=== PATIENT | female | born 1990 | race Caucasian/White ===

== ENCOUNTER 2020-06-09 16:57 | Observation (INO) | payer OTHER, SELFPAY ==
[2020-06-09 17:16] VITALS: BP 108/58; PULSE 76
[2020-06-09 17:24] VITALS: BMI 28.0
--- NOTE | 2020-06-09 17:24 | OBADM ---
This patient, Minnie Ferguson, admitted to the OB room OB Post 116 for observation. Patient/family oriented to hospital policies and general routines including ID bracelet, bed and alarms, visiting hours, pain management, procedures, bathroom and other care routines, personal items, smoking policy, room service/diet, and visiting hours. Patient/Family are encouraged to report perceived risks to care and to ask questions if they do not understand what they are told or what they should do.
[2020-06-09 17:31] VITALS: BP 101/60; PULSE 77
[2020-06-09 17:46] VITALS: BP 101/56; PULSE 74
--- NOTE | 2020-07-01 08:25 | PM.OBTRLD ---
OB - Triage/Final Diagnosis Final Diagnosis (1) Back pain: Code(s): M54.9 - Dorsalgia, unspecified Status: Acute
== END 2020-06-09 18:15 | disposition home or self-care (01) ==
PROVIDERS: Admitting Provider Obstetrics & Gynecology; Visit Provider Obstetrics & Gynecology
DX: O99.89 Other specified diseases and conditions complicating pregnancy, childbirth and the puerperium (principal); M54.9 Dorsalgia, unspecified; Z3A.00 Weeks of gestation of pregnancy not specified
CPT/HCPCS: G0378; G0379

== ENCOUNTER 2020-06-25 15:19 | Observation (INO) | payer OTHER, SELFPAY ==
--- NOTE | 2020-06-25 15:19 | OBADM ---
This patient, Minnie Ferguson, admitted to the OB room Labor/Delivery/Recovery 105 for observation. Patient/family oriented to hospital policies and general routines including ID bracelet, bed and alarms, visiting hours, pain management, procedures, bathroom and other care routines, personal items, smoking policy, room service/diet, and visiting hours. Patient/Family are encouraged to report perceived risks to care and to ask questions if they do not understand what they are told or what they should do.
[2020-06-25 15:30] VITALS: RESP 17; BMI 28.3
[2020-06-25 16:43] VITALS: RESP 18
[2020-06-25 16:45] VITALS: BP 108/64; PULSE 60
--- NOTE | 2020-06-25 17:03 | PC.NURSE ---
Discharge instructions reviewed with patient, patient states understanding of discharge instructions. Patient denies questions and is agreeable to discharge. Patient left OB unit ambulating at 1703.
--- NOTE | 2020-07-18 08:08 | PM.OBDSVD ---
DS: Admitting Diagnosis Admitting Diagnosis Admitting Diagnosis: pelvic pain/contractions DS: Discharge Diagnosis Discharge Diagnosis (1) Vaginal delivery: Code(s): O80 - Encounter for full-term uncomplicated delivery Status: Acute OB - DS: Summary OB Procedures : None OB Procedures Intrapartum: Spontaneous Vag Delivery OB Procedures: : None Peripartum Data Infant Delivery Method: Natural Vaginal Laceration description: None complications: none Status at Discharge Functional status at discharge: independent ambulation Overall status at discharge: patient is back to baseline Time Spent with Patient Time attestation: Total time spent providing and/or coordinating discharge services: Discharge Plan Discharge Attending physician on discharge: Kaycee Galloway Consulting providers: Kaycee Galloway Discharging Clinician: Kaycee Galloway Patient Disposition: Home, Self-Care Activity: as tolerated Diet: as tolerated Discharge Instructions: OB ANTEPARTUM DISCHARGE INSTRUCTIONS This information is given to help you properly care for yourself at home after your discharge from the hospital. Follow these instructions until your doctor tells you otherwise. DIET: Eat Three Well Balanced Meals per Day Drink at Least Eight 8-Ounce Glasses of Caffeine-Free Beverages Daily Additional Diet Instructions: ACTIVITY: As Tolerated Increase Periods of Rest Side Lying Position is Preferable Additional Activity Instructions: RETURN TO LABOR AND DELIVERY IF YOU HAVE: Any Change In Baby's Normal Movement Pattern Any Leakage of Fluid Contractions 5-7 Minutes Apart with Increasing Intensity More than 6 Contractions in an Hour Vaginal Bleeding Additional Reasons to Return to Labor and Delivery: Contractions may feel like abdominal pain, tightening, cramping, pressure, back ache, or thigh ache. 24 Hour Urine Collection: Continue 24 hour urine collection until at . When collection is completed, return specimen to the [facility]. See handout for 24 hour urine collection. OTHER INSTRUCTIONS: FOLLOW-UP CARE: Keep Next Scheduled Appointment To see Olivia Galloway CNM in/on As Scheduled Valuables released to patient or family? N/A Medications from home returned to patient? N/A I Have Received Information Regarding Effective Home Pain Management I Acknowledge Receipt of and Understand the Above Instructions IF YOU HAVE ANY QUESTIONS REGARDING THESE INSTRUCTIONS, PLEASE CALL [phone]. IF PROBLEMS ARISE, CALL YOUR PROVIDER. IF EMERGENCY CARE IS NEEDED, [facility] EMERGENCY ROOM IS AVAILABLE 24 HOURS A DAY. Stand Alone Forms: General Discharge Information Follow-up/Referrals: Kaycee Galloway CNM [Certified Nurse Tool And Die Manager] - Keep Reg. Scheduled Appt. Discharge Medications: Continued PNV cmb#95-ferrous fumarate-FA [] 28 mg iron- 800 mcg Tablet 1 tablet PO DAILY RF: 0 Date of admission: 06/25/20 15:19 Primary Care Provider: PHYSICIAN,CUSTOMER DATA TECHNICIAN Admitting Provider: Stephanie Esqueda Attending physician on admission: Stephanie Esqueda
--- NOTE | 2020-07-22 07:40 | PM.OBTRLD ---
OB - Triage/Final Diagnosis Final Diagnosis (1) False labor: Code(s): O47.9 - False labor, unspecified Status: Acute
== END 2020-06-25 17:03 | disposition home or self-care (01) ==
PROVIDERS: Admitting Provider Obstetrics & Gynecology; Visit Provider Obstetrics & Gynecology
DX: O47.9 False labor, unspecified (principal); Z3A.00 Weeks of gestation of pregnancy not specified
CPT/HCPCS: G0378; G0379

== ENCOUNTER 2020-06-28 03:40 | Observation (INO) | payer OTHER, SELFPAY ==
--- NOTE | 2020-07-22 08:07 | PM.OBTRLD ---
OB - Triage/Final Diagnosis Final Diagnosis (1) False labor: Code(s): O47.9 - False labor, unspecified Status: Acute
== END 2020-06-28 06:15 | disposition home or self-care (01) ==
PROVIDERS: Admitting Provider Obstetrics & Gynecology; Visit Provider Obstetrics & Gynecology
DX: O47.9 False labor, unspecified (principal); Z3A.00 Weeks of gestation of pregnancy not specified
CPT/HCPCS: G0378; G0379

== ENCOUNTER 2020-07-04 14:17 | Inpatient (IN) | payer OTHER, SELFPAY ==
[2020-07-04] VITALS (83 sets, daily range): BP systolic 88–132; BP diastolic 43–106; PULSE 45–205; RESP 16; TEMP 36.2–37.2; O2SAT 83–100; BMI 27.8
[2020-07-04] MEDS: LACTATED RINGERS 1,000 ML 125 ML IV CONT ×2 (15:09→17:54)
[2020-07-04] MEDS: OXYTOCIN 30 UNITS/NS 500 ML 30 UNITS/500 ML BAG IV CONT (15:10)
[2020-07-04 15:19] LABS: Basophils Percent Auto 0.4 % (0.2-1.2); Eosinophils Absolute Auto 0.1 K/mm3 (0-0.3); Eosinophils Percent Auto 0.9 % (0-4.4); Hemoglobin 11.4 g/dL (12.0-15.0); Immature Granulocyte Absolute 0.06 K/mm3 (0.00-0.031); Immature Granulocyte Percent A 0.8 % (0-0.5); Lymphocytes Absolute Auto 2.07 K/mm3 (0.9-3.2); Lymphocytes Percent Auto 26.1 % (18.3-44.2); Mean Corpuscular HGB Conc 34.5 g/dl (32-36); Mean Corpuscular Hemoglobin 32.6 pg (26-34); Mean Corpuscular Volume 94.3 fl (80-100); Mean Platelet Volume 10.7 fl (7.4-10.4); Monocytes Absolute Auto 0.6 K/mm3 (0.1-0.6); Monocytes Percent Auto 7.6 % (2.6-8.5); Neutrophils Absolute Auto 5.1 K/mm3 (1.3-6.7); Neutrophils Percent Auto 64.2 % (45.5-73.1); Platelet Count Result 157 k/mm3 (150-375); Red Cell Distribution Width 14.5 % (11.5-14.5); White Blood Count 7.9 K/mm3 (4.5-10.0)
--- NOTE | 2020-07-04 15:28 | LDADM ---
This patient, Minnie Ferguson, was admitted to Labor/Delivery/Recovery 107 on 07/04/20 at 14:17. Plans for labor, pain management and were discussed with patient. Patient/family oriented to hospital policies and general routines including ID bracelet, bed and alarms, visiting hours, pain management, procedures, bathroom and other care routines, personal items, smoking policy, room service/diet and guest tray routines, security routines, and visiting hours. Patient/Family are encouraged to report perceived risks to care and to ask questions if they do not understand what they are told or what they should do. See OBIX for further documentation.
--- NOTE | 2020-07-04 17:51 | WPDANESEPPF ---
Anes - Initial Pre Proc Eval Date/Time: 07/04/20 17:51 Surgeon: Stephanie Esqueda MD Pre Op Diagnosis: IOL Patient Data Age: 29 Gender: F Height: 5 ft 1.5 in Weight: 68 kg Last Vital Signs Temp 37.2 C 07/04/20 16:41 Pulse 82 07/04/20 17:50 BP 115/70 07/04/20 17:50 Pulse Ox 100 07/04/20 17:47 Allergies Allergy/AdvReac Type Severity Reaction Status Date / Time No Known Drug Allergies Allergy Unknown Unknown Verified 06/12/20 12:37 Home Medications Medication Instructions Recorded Confirmed Type PNV cmb#95-ferrous fumarate-FA 1 tablet PO DAILY 06/12/20 06/12/20 History [] Laboratory Tests 07/04/20 07/04/20 07/04/20 15:06 15:06 15:06 WBC 7.9 K/mm3 K/mm3 (4.5-10.0) RBC 3.50 M/mm3 L M/mm3 (4.2-5.4) Hgb 11.4 g/dL L g/dL (12.0-15.0) Hct 33.0 % L % (37.0-47.0) MCV 94.3 fl fl (80-100) MCH 32.6 pg pg (26-34) MCHC 34.5 g/dl g/dl (32-36) RDW 14.5 % % (11.5-14.5) Plt Count 157 k/mm3 k/mm3 (150-375) MPV 10.7 fl H fl (7.4-10.4) Immature Gran % (Auto) 0.8 % H % (0-0.5) Neut % (Auto) 64.2 % % (45.5-73.1) Lymph % (Auto) 26.1 % % (18.3-44.2) [place] % (Auto) 7.6 % % (2.6-8.5) Eos % (Auto) 0.9 % % (0-4.4) Baso % (Auto) 0.4 % % (0.2-1.2) Lymph # (Auto) 2.07 K/mm3 K/mm3 (0.9-3.2) [place] # (Auto) 0.6 K/mm3 K/mm3 (0.1-0.6) Eos # (Auto) 0.1 K/mm3 K/mm3 (0-0.3) Baso # (Auto) 0.0 K/mm3 K/mm3 (0.0-0.1) Abs Immat Gran (auto) 0.06 K/mm3 H K/mm3 (0.00-0.031) Absolute Neuts (auto) 5.1 K/mm3 K/mm3 (1.3-6.7) Absolute Nucleated RBC 0.0 K/mm3 K/mm3 (0.0-0.012) Nucleated RBC % 0.0 % % (0.0-0.2) RPR Pending Blood Type A Positive Antibody Screen Negative Patient hx anesthesia problems: none Family hx anesthesia problems: none PMFSH Family History Family History Other Unknown family medical history Social History Social History Smoking status: Never smoker Substance use: never Spiritual care concerns: No Anes - Eval Final PreProcedure Day of Procedure 07/04/20 17:51 Patient weight: overweight Heart: regular rate and rhythm Lungs: clear to auscultation Neurological: alert and oriented ASA classification: II Emergent: no Anesthetic plan: proceed Anesthesia type and monitoring: regional epidural and standard monitoring Informed Consent: The patient's anesthetic plan and its attendant risks and benefits were discussed with the patient/family/POA. Questions were solicited and answers provided to the satisfaction of the patient/family/POA.
[2020-07-04] MEDS: ONDANSETRON INJ 4 MG/2 ML VIAL IV PUSH (18:36)
--- NOTE | 2020-07-04 18:49 | WPDOBADMIT ---
Obstetrics - Admit Note Admission Note: 29y/o @ 39 weeks here for elective induction of labor. AROM performed Cervix record reviewed. No pertinent additions to the history and/or any subsequent changes in the physical findings that are not consistent with the expected course of the were found. Additions to the history and/or subsequent changes in the physical findings follow. None.
--- NOTE | 2020-07-04 20:56 | P.PCNOB_ITS ---
OB - Delivery Note Procedure Delivery date: 07/04/20 Intrapartal events: None Induction method: per pitocin protocol Delivery monitor: external FHT and external uterine Route of delivery: Episiotomy description: None Laceration description: None Estimated blood loss (mL): 160 Anesthesia type: None [place] Baby Date of : 07/04/20 Time of : 20:42 Weeks of gestation at delivery: 39 gender: Female Weight (pounds): 7 Weight (ounces): 2 presentation: vertex position: Right Occiput Anterior Placenta delivery description: Spontaneous cord vessel description: 3 Vessels
[2020-07-04] MEDS: OXYTOCIN 30 UNITS/NS 500 ML 30 UNITS/500 ML BAG 125 UNITS IV CONT (21:21)
[2020-07-04] MEDS: WITCH HAZEL 40 PADS 1 PAD TOPICAL (23:03)
[2020-07-04] MEDS: BENZOCAINE 20% AER SPR (*SP) 56 GM CAN 1 SPRAY TOPICAL (23:03)
--- NOTE | 2020-07-04 23:27 | PC.NURSE ---
This patient, Minnie Ferguson, was received from Labor and Delivery on 07/04/20 at 2320. Personal belongings list checked and signed. Patient/family oriented to unit policies and routines
[2020-07-04] MEDS: IBUPROFEN 600 MG TABLET PO (23:49)
[2020-07-05 05:25] LABS: Hematocrit 29.8 % (37.0-47.0); Hemoglobin 10.2 g/dL (12.0-15.0)
[2020-07-05 07:15] VITALS: PULSE 86; RESP 16; O2SAT 100
[2020-07-05] MEDS: IBUPROFEN 600 MG TABLET PO ×2 (07:25→16:29)
--- NOTE | 2020-07-05 07:42 | P.PNOB_ITS ---
OB - PN: Subj Subjective Date/time seen: 07/05/20 07:42 Patient comments: no complaints, pain well controlled and other (Lochia similar to menses) [place] baby status: doing well OB - PN: Obj Data Labs CBC & Chem 7: 07/05/20 04:10 Labs: Laboratory Results - last 24 hr 07/04/20 07/04/20 07/05/20 15:06 15:06 04:10 WBC 7.9 RBC 3.50 L Hgb 11.4 L 10.2 L Hct 33.0 L 29.8 L MCV 94.3 MCH 32.6 MCHC 34.5 RDW 14.5 Plt Count 157 MPV 10.7 H Immature Gran % (Auto) 0.8 H Neut % (Auto) 64.2 Lymph % (Auto) 26.1 [place] % (Auto) 7.6 Eos % (Auto) 0.9 Baso % (Auto) 0.4 Lymph # (Auto) 2.07 [place] # (Auto) 0.6 Eos # (Auto) 0.1 Baso # (Auto) 0.0 Abs Immat Gran (auto) 0.06 H Absolute Neuts (auto) 5.1 Absolute Nucleated RBC 0.0 Nucleated RBC % 0.0 Blood Type A Positive Antibody Screen Negative OB - PN A/P Plan day: 1 (s/p vaginal delivery, doing well) Plan: routine care Time Spent With Patient Time: Total time spent is greater than 50% in coordination of care (as documente d) at patient's floor/unit and/or counseling patient: Exam Const: General: no acute distress GI: Inspection: other (Fundus firm and nontender at umbilicus) GI Palp: Yes Soft to palpation and No Tenderness to palpation present (GI) Extrem: General: no edema
[2020-07-05 07:45] VITALS: BP 105/59; PULSE 70; RESP 16; TEMP 36.9; O2SAT 100
--- NOTE | 2020-07-05 09:22 | WPDANLDPN2 ---
Anes-Prog Note L&D Date/Time: 07/05/20 09:22 Comfortable throughout: labor and delivery Neuraxial method: epidural Epidural/Spinal procedure site: clean & non-tender Neuro status: Neuro function grossly intact. Cardiovascular status: normal Respiratory status: normal Airway patency: baseline Mental status: baseline Post-Op hydration status: normal Vital Signs: Last Vital Signs Temp 36.2 C L 07/04/20 23:35 Pulse 86 07/05/20 07:15 Resp 16 07/05/20 07:15 BP 105/73 07/04/20 23:35 Pulse Ox 100 07/05/20 07:15 Pain score (VAS): 10/20 I/O: Intake & Output 07/04/20 07/05/20 07/05/20 23:59 07:59 15:59 Intake Total 2500 Output Total 284 Balance 2500 -284 Post-procedural complaints: none Patient feedback: Patient satisfied with anesthetic care.
[2020-07-05 11:13] LABS: Rapid Plasma Reagin Non-Reactive (NonReactive)
[2020-07-05] MEDS: ACETAMINOPHEN 325 MG TABLET 650 MG PO (11:25)
--- NOTE | 2020-07-05 15:15 | PC.NURSE ---
Consulted with patient, mother reports infant has eagerly latched for the first several feedings. Mother states she has requested assist with latching each feeding. Advised mother she may attempt on her own or call for assist as she wishes. Reviewed feeding cues, frequencies, duration of feedings, feeding elimination flow sheet, and signs of adequate intake. Demonstrated stimulation techniques to wake for feeding. Assisted with to breast. Reviewed positioning/alignment in cross cradle, holding breast in U hold and guided asymmetrical latch on. Reviewed rational for each. was able to latch correctly. nursed eagerly, with steady draws and frequent swallowing noted. Reviewed signs of a correct latch, effective nursing and suck swallow ratio. was able to maintain latch without discomfort to mother. Nipple care reviewed. Suggested mother stimulate to keep awake and nursing effectively for increased intake and to assist with maintaining deep latch. Demonstrated how to adjust latch while feeding. Instructed mother to call out for RN assistance if she is unable to latch infant for feeding or she has discomfort with nursing. Instructed feeding should be initiated three hours from start of last feeding or if feeding cues are noted before. Mother voiced understanding of information shared.
[2020-07-05] MEDS: POLYSACCHARIDE IRON COMPLEX 150 MG CAPSULE PO (16:27)
[2020-07-05 19:40] VITALS: BP 110/64; PULSE 73; RESP 14; TEMP 36.3; O2SAT 100
[2020-07-06] MEDS: IBUPROFEN 600 MG TABLET PO ×2 (01:46→08:11)
[2020-07-06 07:45] VITALS: BP 111/71; PULSE 78; RESP 18; TEMP 36.8; O2SAT 100
[2020-07-06] MEDS: MEASLES,MUMPS,RUBELLA VACCINE 0.5 ML VIAL SUB-Q (08:12)
--- NOTE | 2020-07-06 10:43 | PM.OBPNVD ---
OB - PN: Subj Subjective Date/time seen: 07/06/20 10:43 Patient comments: no complaints baby status: doing well OB - PN: Obj Data Labs CBC & Chem 7: 07/05/20 04:10 Labs: Laboratory Results - last 24 hr 07/04/20 15:06 RPR Non-reactive OB - PN A/P Plan day: 2 Plan: routine care and discharge home Comments: RTC 4 weeks Time Spent With Patient Time: Total time spent is greater than 50% in coordination of care (as documented) at patient's floor/unit and/or counseling patient: Review of Systems Review of Systems: All systems reviewed & are unremarkable except as noted in HPI and below Exam Narrative: Exam Narrative: Fundus firm and flow controlled. Const: General: comfortable Resp: Effort & Inspection: normal respiratory effort Psych: Appearance: grossly normal Affect: normal affect Attitude: cooperative Judgement: Good judgement present (Psych)
--- NOTE | 2020-07-06 12:23 | PC.NURSE ---
Patient instructed on viewing the discharge video Mother & Baby Care, The First Two Weeks . Patient was given the opportunity and encouraged to ask questions. Patient verbalized understanding of information shared and has been given the mother/baby guide for home reference.
[2020-07-08 08:27] VITALS: BP 112/65; PULSE 69; RESP 16; TEMP 36.8; O2SAT 100
--- NOTE | 2020-07-22 08:13 | PM.OBDSVD ---
DS: Admitting Diagnosis Admitting Diagnosis Admitting Diagnosis: IOL DS: Discharge Diagnosis Discharge Diagnosis (1) Vaginal delivery: Code(s): O80 - Encounter for full-term uncomplicated delivery Status: Acute OB - DS: Summary OB Procedures : None OB Procedures Intrapartum: Spontaneous Vag Delivery OB Procedures: : None Peripartum Data Infant Delivery Method: Natural Vaginal Laceration description: None complications: none Status at Discharge Functional status at discharge: independent ambulation Overall status at discharge: patient is back to baseline Time Spent with Patient Time attestation: Total time spent providing and/or coordinating discharge services: Time spent: Less than 30 minutes Discharge Plan Discharge Attending physician on discharge: Kaycee Galloway Consulting providers: Kaycee Galloway ; [place] Discharging Clinician: Kaycee Galloway Patient Disposition: Home, Self-Care Activity: pelvic rest Diet: as tolerated Discharge Instructions: Education: Mom and Baby Guide Given to: Mother Follow-Up: Call your delivering provider's office for an appointment to be seen in: call for appointment Mom and baby should come to the [facility] for the follow-up appointment. Appointment Date/Time: July 08, 2020 at 8:00 am What to expect at your follow-up visit: Physical Assessment Call [phone] if you are unable to keep your appointment time. BREAST CARE: * Wear a snug supportive bra. * For engorgement discomfort: Bottle Feeding: * May apply ice packs EPISIOTOMY/PERINEAL CARE: * Until bleeding stops, use your margarita bottle after urinating * Change your pad frequently throughout the day * No tub baths until seen by your physician - You may shower ACTIVITY: * Rest as much as possible. * Do not exercise or lift anything heavier than your baby (such as laundry or other children.) * Avoid stairs or driving as much as possible. * Do not put anything into the vagina. No douching, tampons, or sexual activity until seen by physician. NOTIFY PHYSICIAN IF YOU HAVE ANY QUESTIONS OR IF ANY OF THE FOLLOWING SYMPTOMS OCCUR: * If your perineum becomes red, swollen, or more painful than what you have experienced in the hospital. * If your vaginal bleeding becomes foul smelling. * If your vaginal bleeding becomes more heavy than a period or if your bleeding changes from pink to bright red. However, you may pass an occasional walnut-sized clot once or twice for the first week . * If you experience a sharp, shooting pain in you calves. * If you discover a hard, reddened area on your breast or if you experience flu-like symptoms. DIET: * Eat regular, well-balanced meals. * Drink plenty of fluids daily. If , drink to thirst. Stand Alone Forms: General Discharge Information Follow-up/Referrals: Kaycee Galloway CNM [Certified Nurse Sales Representative Printing Paper] - Discharge Medications: Continued PNV cmb#95-ferrous fumarate-FA [] 28 mg iron- 800 mcg Tablet 1 tablet PO DAILY RF: 0 Date of admission: 07/04/20 14:17 Primary Care Provider: PHYSICIAN,WANT AD RECEIVER Admitting Provider: Stephanie Esqueda Attending physician on admission: Stephanie Esqueda
== END 2020-07-06 13:23 | disposition home or self-care (01) | DRG 807 ==
LOC: ANHLDR 14:20 → ANHOB2 23:30
PROVIDERS: Advanced Practice Midwife; Admitting Provider Obstetrics & Gynecology; Visit Provider Obstetrics & Gynecology
DX: O77.0 Labor and delivery complicated by meconium in amniotic fluid (principal); Z37.0 Single live birth; Z3A.39 39 weeks gestation of pregnancy
CPT/HCPCS: 36415; 85014; 85018; 85025; 86592; 86850; 86900; 86901; 90710; A9270; J2405; J2590; J2795; J7120

== ENCOUNTER → 2021-06-21 02:11 | Outpatient (CLI) | payer OTHER, SELFPAY ==
[2021-06-21 19:28] LABS: SARS-CoV-2 RNA PCR Negative
== END ==
PROVIDERS: PCP Nurse Practitioner Family; Visit Provider Nurse Practitioner Family
DX: R05 Cough (principal); Z20.822 Contact with and (suspected) exposure to COVID-19
CPT/HCPCS: C9803; U0003; U0005

== ENCOUNTER 2021-12-25 07:48 | Emergency (ER) | payer OTHER, SELFPAY ==
[2021-12-25] VITALS (11 sets, daily range): BP systolic 92–113; BP diastolic 62–92; PULSE 56–79; RESP 15–25; TEMP 36.3; O2SAT 91–100
--- NOTE | ~2021-12-25 | XR_ITS ---
EXAMINATION: XR chest 2V 12/25/2021 08:02 INDICATION: Chest pain PROCEDURE: 2 view chest COMPARISON: 06/19/2018 FINDINGS: The lungs are clear. The cardiomediastinal silhouette is within normal limits. There are no pleural effusions. There is no pneumothorax suspected. IMPRESSION: 1: NO ACUTE CARDIOPULMONARY DISEASE. Reviewed, dictated and finalized at location B.
--- NOTE | 2021-12-25 07:52 | ECG_ITS ---
Measurements Intervals [place] Rate: 62 P: 5 AL: 131 QRS: 62 QRSD: 79 T: 46 QT: 387 QTc: 395 Interpretive Statements SINUS RHYTHM NO PREVIOUS ECG AVAILABLE FOR COMPARISON Electronically Signed On 12-25-2021 13:58:57 CDT by Ghada Horowitz M.D.
[2021-12-25 08:08] LABS: Basophils Percent Auto 0.5 % (0.2-1.2); Eosinophils Absolute Auto 0.2 K/mm3 (0-0.3); Eosinophils Percent Auto 2.3 % (0-4.4); Hematocrit 39.4 % (37.0-47.0); Immature Granulocyte Absolute 0.01 K/mm3 (0.00-0.031); Immature Granulocyte Percent A 0.2 % (0-0.5); Lymphocytes Absolute Auto 3.05 K/mm3 (0.9-3.2); Lymphocytes Percent Auto 47.5 % (18.3-44.2); Mean Corpuscular Hemoglobin 30.4 pg (26-34); Mean Corpuscular Volume 92.1 fl (80-100); Mean Platelet Volume 9.5 fl (7.4-10.4); Monocytes Absolute Auto 0.7 K/mm3 (0.1-0.6); Monocytes Percent Auto 10.3 % (2.6-8.5); Neutrophils Absolute Auto 2.5 K/mm3 (1.3-6.7); Neutrophils Percent Auto 39.2 % (45.5-73.1); Platelet Count Result 208 k/mm3 (150-375); Red Blood Count 4.28 M/mm3 (4.2-5.4); Red Cell Distribution Width 13.2 % (11.5-14.5); White Blood Count 6.4 K/mm3 (4.5-10.0)
[2021-12-25 08:15] LABS: INR 0.9; Prothrombin Time 11.7 Seconds (11.1-14.7)
[2021-12-25 08:16] LABS: Alanine Aminotransferase 18 U/L (4-35); Albumin Level 4.1 g/dL (3.5-5.1); Alkaline Phosphatase 42 U/L (38-126); Anion Gap 6 mmol/L (8-16); Aspartate Amino Transferase 28 U/L (14-36); Bilirubin,Total 0.4 mg/dL (0.2-1.3); Blood Urea Nitrogen 16 mg/dL (7-17); Calcium 8.6 mg/dL (8.4-10.2); Carbon Dioxide 24 mmol/L (22-30); Chloride 109 mmol/L (98-107); Estimated CRCL calculation 93 ml/min; Estimated Glomerular Filt Rate > 60; Glucose 84 mg/dL (65-110); Lipase 112 U/L (23-300); Partial Thromboplastin Time 24.6 SECONDS (22.3-36.8); Potassium 4.5 mmol/L (3.4-5.0); Sodium 139 mmol/L (137-145)
[2021-12-25 08:27] LABS: Troponin I < 0.012 ng/mL (0.000-0.034)
[2021-12-25 09:08] LABS: D Dimer 0.35 ug/mL (<0.48)
[2021-12-25] MEDS: KETOROLAC 30 MG/ML VIAL (*BKC) IV PUSH (09:12)
--- NOTE | 2021-12-25 09:21 | ED.CHESTPAIN ---
HPI - Chest Pain General Chief Complaint: Chest Pain Stated Complaint: Chest pain Time Seen by Provider: 12/25/21 08:47 Source: patient and RN notes reviewed Mode of arrival: ambulatory History of Present Illness HPI narrative: Patient is 31 years old white female presented to the ED with sharp stabbing pain of the upper chest and upper back bilaterally worse with certain movement and stretching. This been ongoing process since had COVID November 2021, but got worse this morning. Patient denies any fever, chills, nausea, vomiting, shortness of breath. 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 Patient is physically active almost all day long. Patient does not take medicine at home, does not smoke or drink or uses drugs. Related Data Home Medications Medication Instructions Recorded Confirmed norethindrone-e.estradiol-iron tablet 12/25/21 [[place] Fe 10/30 (28)] Allergies Allergy/AdvReac Type Severity Reaction Status Date / Time No Known Drug Allergies Allergy Unknown Unknown Verified 12/25/21 07:55 Review of Systems Review of Systems: CONSTITUTIONAL: Denies fever, chills, or sweats. EYES: Denies visual changes, redness, or discharge. ENT: Denies rhinorrhea, congestion, sore throat, or otalgia. CARDIOVASCULAR: Denies chest pain, palpitations, or edema. RESPIRATORY: Denies cough or dyspnea. GASTROINTESTINAL: Denies abdominal pain, nausea, vomiting, or diarrhea. GENITOURINARY: Denies dysuria or hematuria. SKIN: Denies rash or itching. MUSCULOSKELETAL: Muscle pain NEUROLOGIC: Denies headache, numbness, or weakness. PSYCHIATRIC: Denies anxiety or depression. PMFSH Family History Family History Other Unknown family medical history Social History Social History Smoking status: Never smoker Substance use: never Spiritual care concerns: No Exam Narrative: General appearance: Well-developed, well-nourished Skin: Normal color Head: Normocephalic, nontraumatic Eyes: Clear conjunctiva ENT: Oropharynx normal, ears normal, nose normal Neck: Supple, nontender Chest and respiratory: Airway patent, no respiratory distress, no accessory muscle use Heart: Regular rate/rhythm Abdomen: Soft, nontender, no organomegaly, quiet bowel sounds Vascular: Normal peripheral pulses, normal capillary refill. Musculoskeletal: Diffuse tenderness of the upper back and upper chest bilaterally with light touch. No bruises, no swelling, no rash Neurologic: Alert and oriented ?3, SECURITY SHIFT MANAGER is normal as tested, no gross motor deficit Course Course Emergency Course: Stable Vital Signs Vital signs: Vital Signs Temperature 36.3 C L 12/25/21 07:53 Pulse Rate 75 12/25/21 07:53 Respiratory Rate 18 12/25/21 07:53 Blood Pressure 111/89 12/25/21 07:53 Pulse Oximetry 100 12/25/21 07:53 Temperature 36.3 C L 12/25/21 07:53 Pulse Rate 61 12/25/21 09:01 Respiratory Rate 21 H 12/25/21 09:01 Blood Pressure 104/64 12/25/21 09:01 Pulse Oximetry 100 12/25/21 09:01 MDM - Chest Pain MDM Narrative Medical decision making narrative: Patient presents with upper back and upper chest pain. Differential diagnosis as below Differential Diagnosis Differential diagnosis: Likely atypical chest pain, costochondritis, chest pain and other (Musculoskeletal pain) Lab Data Result diagrams: 12/25/21 07:58 12/25/21 07:58 Labs: Lab Results 12/25/21 12/25/21 12/25/21 Range/Units 07:58 07:58 07:58 WBC 6.4 (4.5-10.0) K/mm3 RBC 4.28 (4.2-5.4) M/mm3 Hgb 13.0 (12.0-15.0) g/dL Hct 39.4 (37.0-47.0) % M
== END 2021-12-25 09:40 | disposition home or self-care (01) ==
PROVIDERS: Emergency Provider Emergency Medicine; PCP Nurse Practitioner Family
DX: R07.89 Other chest pain (principal); M54.6 Pain in thoracic spine; Z86.16 Personal history of COVID-19
CPT/HCPCS: 36415; 71046; 80053; 83690; 84484; 85025; 85380; 85610; 85730; 93005; 96374; 99284; J1885

== ENCOUNTER 2023-09-06 11:04 | Emergency (ER) | payer OTHER, SELFPAY ==
--- NOTE | ~2023-09-06 | US_ITS ---
EXAMINATION: US pelvic complete DATE: 09/06/2023 15:16 INDICATION: Evaluation for torsion. Right lower quadrant pain. Comparison:No prior studies for comparison. TECHNIQUE: Multiple transabdominal and endovaginal sonographic images of the pelvis performed. FINDINGS: The uterus measures 7.2 x 3.8 x 5.9 cm. The endometrial complex measures 7.3 mm. The right ovary measures 2.2 x 1.5 x 1.6 cm and the left ovary measures 3 x 2 x 2.3 cm. There are sm all follicles in each ovary. Normal doppler signal in both ovaries. There is no free fluid in the pelvis. There are no abnormal masses seen on either side. IMPRESSION: 1. Normal pelvic ultrasound. No evidence for torsion. Reviewed, dictated and finalized at location B. REST BUILDER
--- NOTE | ~2023-09-06 | CT_ITS ---
EXAMINATION: CT abdomen pelvis w con DATE: 09/06/2023 14:28 INDICATION: Right lower quadrant abdominal pain. TECHNIQUE: Computed tomography (CT) of the abdomen and pelvis was performed with 100 mL Omnipaque 350 intravenous contrast. Automated exposure control and iterative reconstruction technique were employe d. The dose-length product was 285.30 mGy-cm. COMPARISON: CT abdomen and pelvis 06/20/2018 FINDINGS: The visualized portions of the lung bases are clear without pneumonia or pleural effusion. The heart size is normal. No pericardial effusion. The liver, gallbladder, spleen, pancreas, adrenal glands, and kidneys are normal. There are no dilated loops of bowel. The appendix is normal. There is physiologic fluid in the pelvis. There are no pathologically enlarged lymph nodes. There is mild lum bar spondylosis. IMPRESSION: 1. No etiology for the patient's symptoms. Reviewed, dictated and finalized at location A. TY CLERK
[2023-09-06 11:28] VITALS: BP 110/60; PULSE 75; RESP 14; TEMP 36.7; O2SAT 100
[2023-09-06 11:40] LABS: Basophils Percent Auto 0.4 % (0.2-1.2); Eosinophils Absolute Auto 0.1 K/mm3 (0-0.3); Eosinophils Percent Auto 1.3 % (0-4.4); Hematocrit 42.1 % (37.0-47.0); Hemoglobin 13.5 g/dL (12.0-15.0); Immature Granulocyte Absolute 0.04 K/mm3 (0.00-0.031); Immature Granulocyte Percent A 0.4 % (0-0.5); Lymphocytes Absolute Auto 2.74 K/mm3 (0.9-3.2); Lymphocytes Percent Auto 25.3 % (18.3-44.2); Mean Corpuscular HGB Conc 32.1 g/dl (32-36); Mean Corpuscular Hemoglobin 29.8 pg (26-34); Mean Corpuscular Volume 92.9 fl (80-100); Mean Platelet Volume 9.6 fl (7.4-10.4); Monocytes Absolute Auto 0.6 K/mm3 (0.1-0.6); Monocytes Percent Auto 5.2 % (2.6-8.5); Neutrophils Absolute Auto 7.3 K/mm3 (1.3-6.7); Neutrophils Percent Auto 67.4 % (45.5-73.1); Platelet Count Result 229 k/mm3 (150-375); Red Blood Count 4.53 M/mm3 (4.2-5.4); Red Cell Distribution Width 12.9 % (11.5-14.5); White Blood Count 10.8 K/mm3 (4.5-10.0)
[2023-09-06 12:21] LABS: Alanine Aminotransferase 16 U/L (6-35); Albumin Level 4.5 g/dL (3.5-5.1); Alkaline Phosphatase 53 U/L (38-126); Anion Gap 9 mmol/L (8-16); Aspartate Amino Transferase 26 U/L (14-36); Bilirubin,Total 0.3 mg/dL (0.2-1.3); Blood Urea Nitrogen 9 mg/dL (7-17); Calcium 9.2 mg/dL (8.4-10.2); Carbon Dioxide 20 mmol/L (22-30); Chloride 108 mmol/L (98-107); Estimated CRCL calculation 104 ml/min; Estimated Glomerular Filt Rate > 60; Glucose 101 mg/dL (65-110); Lipase 97 U/L (23-300); Potassium 3.9 mmol/L (3.4-5.0); Sodium 137 mmol/L (137-145)
[2023-09-06 12:23] LABS: Appearance Urine Clear (Clear); Bilirubin Urine Negative (Negative); Blood Urine Negative (Negative); Color Urine Yellow (Yellow); Glucose Urine UA Negative (Negative); Ketones Urine Negative (Negative); Leukocyte Esterase Ur Negative LEU/UL (Negative); Nitrate Urine Negative (Negative); Protein Urine Negative (Negative); Specific Grav Ur 1.008 (1.001-1.035); Urobilinogen Urine 0.2 mg/dL (<2.0); pH Urine 5.5 (5.0-9.0)
[2023-09-06 12:41] LABS: Add Urine Microscopic? NO
--- NOTE | 2023-09-06 13:58 | ED.ABDPAIN ---
HPI - Abdominal Pain General Chief Complaint: Abdominal Pain Stated Complaint: Lower right abd pain Time Seen by Provider: 09/06/23 12:33 History of Present Illness HPI narrative: 32-year-old female presents to the emergency department for evaluation of right lower quadrant pain that started yesterday. Patient denies any associated nausea vomiting or diarrhea. Patient denies any pain with urination. Patient denies any prior history of gallbladder disease, kidney stones or ovarian cyst. Related Data Home Medications Medication Instructions Recorded Confirmed norethindrone 1 mg-ethinyl tablet 12/25/21 estradiol 20 mcg (21)-iron 75 mg (7) tablet (Konrad Fe 10/30 (28)) Allergies Allergy/AdvReac Type Severity Reaction Status Date / Time No Known Drug Allergies Allergy Unknown Unknown Verified 09/06/23 11:29 Review of Systems Review of Systems: All systems reviewed & are unremarkable except as noted in HPI and below PMFSH Family History Family History Other Unknown family medical history Social History Social History Smoking status: Never smoker Substance use: never Spiritual care concerns: No Exam Narrative: APPEARANCE: Well appearing, no pain, no distress, well-nourished. HEAD: normocephalic, atraumatic. EYES: PERRLA/EOMI, conjunctivae clear. NOSE: Normal no drainage EARS:TMS clear with good light reflex. THROAT: Pharynx clear, no exudate. NECK: Supple. No adenopathy, no masses. RESPIRATORY: Airway patent, respirations nonlabored. Clear to auscultation bilaterally, no rales, rhonchi, wheezing. CARDIOVASCULAR: Regular rate and rhythm without murmurs rubs or gallops. ABDOMINAL: Some right upper quadrant but significant right lower quadrant tenderness to palpation with rebound and guarding MUSCULOSKELETAL: Moves all extremities. Strength/ROM intact, No edema, No calf tenderness. NEURO: Alert. Cranial nerves II through XII intact. Good gait. Good coordination SKIN: Warm, dry. Normal Color Course Course Emergency Course: 32-year-old female present to the ED for evaluation of right lower quadrant pain. CT scan being ordered to rule out acute appendicitis. Patient declined any medications for pain control. Patient is afebrile but does have a leukocytosis of 10.8. Normal hemoglobin. No significant abnormalities on the CMP UA shows no evidence of urinary tract infection. CT scan was ordered due to concern for possible appendicitis and this was negative. Ultrasound is ordered to rule out for ovarian torsion and this was also negative. Patient was updated on results of workup patient was comfortable with the plan for discharge and close follow-up. Patient declined any medications for pain control. Vital Signs Vital signs: Vital Signs Temperature 98.1 F 09/06/23 11:28 Pulse Rate 75 09/06/23 11:28 Respiratory Rate 14 09/06/23 11:28 Blood Pressure 110/60 09/06/23 11:28 Pulse Oximetry 100 09/06/23 11:28 Oxygen Delivery Room Air 09/06/23 11:28 Temperature 98.1 F 09/06/23 11:28 Pulse Rate 75 09/06/23 16:12 Respiratory Rate 16 09/06/23 16:12 Blood Pressure 115/65 09/06/23 16:12 Pulse Oximetry 100 09/06/23 16:12 Oxygen Delivery Room Air 09/06/23 11:28 MDM - Abdominal Pain Differential Diagnosis Differential diagnosis: Likely abdominal pain, acute appendicitis, constipation, diverticulitis and small bowel obstruction Lab Data Attestation: I reviewed the patient's lab results. 09/06/23 11:34 09/06/23 11:34 Labs: Lab Results 09/06/23 09/06/23 Range/Units 11:34 12:11 WBC 10.8 H (4.5-10.0) K/mm3 RBC 4.53 (4.2-5.4) M/mm3 Hgb 13.5 (12.0-15.0) g/dL Hct 42.1 (37.0-47.0) % MCV 92.9 (80-100) fl MCH 29.8 (26-34) pg MCHC 32.1 (32-36) g/dl RDW 12.9 (11.5-14.5) % Plt Count 229
[2023-09-06] MEDS: SODIUM CHLORIDE 0.9% IV 1,000 ML 999 ML IV CONT (14:10)
[2023-09-06 16:12] VITALS: BP 115/65; PULSE 75; RESP 16; O2SAT 100
== END 2023-09-06 16:12 | disposition home or self-care (01) ==
PROVIDERS: Emergency Provider Emergency Medicine; PCP Nurse Practitioner Family
DX: R10.31 Right lower quadrant pain (principal)
CPT/HCPCS: 36415; 74177; 76856; 80053; 81003; 81025; 83690; 85025; 96360; 99284; J7030; Q9967

== ENCOUNTER 2023-10-12 16:51 | Outpatient (CLI) | payer OTHER, SELFPAY ==
--- NOTE | ~2023-10-12 | MMUS_ITS ---
EXAMINATION: MM diagnostic carol BI w yasmeen, US breast LT limited HISTORY: Palpable lump in the upper outer quadrant of the left breast TECHNIQUE: Craniocaudal, mediolateral, and mediolateral oblique 3-D tomosynthesis images of the breas ts were performed and synthetic 2-D images were generated. CAD analysis was submitted and interpreted . High resolution limited left breast ultrasound was performed. COMPARISON: None, baseline BREAST PARENCHYMAL COMPOSITION: There are scattered areas of fibroglandular density. FINDINGS: MAMMOGRAPHIC FINDINGS: No suspicious mass, calcification, or architectural distortion are identified in either breast to sug gest malignancy. No mammographic correlate is identified for the reported palpable abnormality of the left breast. ULTRASOUND: There is no evidence of focal abnormal solid or cystic mass in the vicinity of the reported palpable abnormality of concern in the left breast. IMPRESSION: 1. No specific mammographic or sonographic correlate is identified for the reported palpable abnormal ity of concern in the left breast. Further evaluation at this time should be based on clinical assess ment. Continued follow-up physical examination is recommended. 2. Recommend routine screening mammography beginning at age 40. BI-RADS Category 1: Negative Reviewed, dictated and finalized at location A. URE FABRICATOR REPAIRER IMPRESSION: 1. No specific mammographic or sonographic correlate is identified for the repo rted palpable abnormality of concern in the left breast. Further evaluation at this time should be based on clinical assessment. Continued follow-up physical examination is recommended. 2. Recommend routine screening mammography beginning at age 40. BI-RADS Category 1: Negative
== END 2023-10-12 16:52 | disposition home or self-care (01) ==
PROVIDERS: PCP Nurse Practitioner Family; Visit Provider Nurse Practitioner
DX: N63.20 Unspecified lump in the left breast, unspecified quadrant (principal); O26.851 Spotting complicating pregnancy, first trimester; Z3A.00 Weeks of gestation of pregnancy not specified
CPT/HCPCS: 76642; 77062; 77066; G0279

== ENCOUNTER 2023-11-10 00:59 | Emergency (ER) | payer OTHER, SELFPAY ==
[2023-11-10 01:00] VITALS: BP 122/58; PULSE 78; RESP 16; TEMP 36.4; O2SAT 100
[2023-11-10 01:42] LABS: Basophils Percent Auto 0.6 % (0.2-1.2); Eosinophils Absolute Auto 0.2 K/mm3 (0-0.3); Eosinophils Percent Auto 2.3 % (0-4.4); Hematocrit 38.7 % (37.0-47.0); Hemoglobin 13.1 g/dL (12.0-15.0); Immature Granulocyte Absolute 0.02 K/mm3 (0.00-0.031); Immature Granulocyte Percent A 0.3 % (0-0.5); Lymphocytes Absolute Auto 3.36 K/mm3 (0.9-3.2); Lymphocytes Percent Auto 46.4 % (18.3-44.2); Mean Corpuscular HGB Conc 33.9 g/dl (32-36); Mean Corpuscular Hemoglobin 29.8 pg (26-34); Mean Corpuscular Volume 88.2 fl (80-100); Mean Platelet Volume 9.6 fl (7.4-10.4); Monocytes Absolute Auto 0.8 K/mm3 (0.1-0.6); Monocytes Percent Auto 10.4 % (2.6-8.5); Neutrophils Absolute Auto 2.9 K/mm3 (1.3-6.7); Platelet Count Result 201 k/mm3 (150-375); Red Blood Count 4.39 M/mm3 (4.2-5.4); Red Cell Distribution Width 12.7 % (11.5-14.5); White Blood Count 7.2 K/mm3 (4.5-10.0)
[2023-11-10 01:53] LABS: Alanine Aminotransferase 16 U/L (6-35); Alkaline Phosphatase 60 U/L (38-126); Anion Gap 10 mmol/L (8-16); Aspartate Amino Transferase 27 U/L (14-36); Bilirubin,Total 0.4 mg/dL (0.2-1.3); Blood Urea Nitrogen 10 mg/dL (7-17); Calcium 8.8 mg/dL (8.4-10.2); Carbon Dioxide 22 mmol/L (22-30); Chloride 106 mmol/L (98-107); Estimated CRCL calculation 87 ml/min; Estimated Glomerular Filt Rate > 60; Glucose 97 mg/dL (65-110); Lipase 98 U/L (23-300); Potassium 3.2 mmol/L (3.4-5.0); Sodium 138 mmol/L (137-145)
[2023-11-10 02:07] VITALS: BP 100/58; PULSE 72; RESP 15; O2SAT 100
[2023-11-10 02:34] LABS: Appearance Urine Clear (Clear); Bilirubin Urine Negative (Negative); Blood Urine Negative (Negative); Color Urine Yellow (Yellow); Glucose Urine UA Negative (Negative); Ketones Urine Negative (Negative); Leukocyte Esterase Ur Negative LEU/UL (Negative); Nitrate Urine Negative (Negative); Protein Urine Negative (Negative); Specific Grav Ur 1.006 (1.001-1.035); Urobilinogen Urine 0.2 mg/dL (<2.0); pH Urine 7.5 (5.0-9.0)
--- NOTE | 2023-11-10 03:10 | ED.GENADULT ---
HPI - General Adult General Chief complaint: Nausea/Vomiting/Diarrhea Stated complaint: dehydration? Time Seen by Provider: 11/10/23 02:05 History of Present Illness HPI narrative: This is a 33-year-old female presenting ED with chief complaint of nausea vomiting diarrhea. She has had symptoms for 3 days. She has also had body aches, subjective fevers And intermittent abdominal pains. she notes that she is having a lot of gurgling in her stomach. She has taken some Pepto-Bismol with no relief. She has not taken any other medications. 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 Patient denies chest pain difficulty breathing pain or urinary symptoms. Related Data Home Medications Medication Instructions Recorded Confirmed norethindrone 1 mg-ethinyl tablet 12/25/21 estradiol 20 mcg (21)-iron 75 mg (7) tablet (Konrad Fe 10/30 (28)) Allergies Allergy/AdvReac Type Severity Reaction Status Date / Time No Known Drug Allergies Allergy Unknown Unknown Verified 09/06/23 11:29 [facility] Family History Family History Other Unknown family medical history Social History Social History Smoking status: Never smoker Substance use: never Spiritual care concerns: No Exam Narrative: APPEARANCE: No apparent distress. Head: atraumatic. EYES: EOMI, NOSE: Atraumatic NECK: Trachea midline RESPIRATORY: No increased rate of breathing CARDIOVASCULAR: RRR, ABDOMINAL: Soft nontender no guarding rebound MUSCULOSKELETAl: No obvious deformities NEURO: Alert. Moving 4/4 extremities SKIN:: Warm, dry. Normal color PSYCHIATRIC: normal Course Vital Signs Vital signs: Vital Signs Temperature 97.6 F 11/10/23 01:00 Pulse Rate 78 11/10/23 01:00 Respiratory Rate 16 11/10/23 01:00 Blood Pressure 122/58 L 11/10/23 01:00 Pulse Oximetry 100 11/10/23 01:00 Oxygen Delivery Room Air 11/10/23 01:00 Temperature 97.6 F 11/10/23 01:00 Pulse Rate 72 11/10/23 02:07 Respiratory Rate 15 11/10/23 02:07 Blood Pressure 100/58 L 11/10/23 02:07 Pulse Oximetry 100 11/10/23 02:07 Oxygen Delivery Room Air 11/10/23 01:00 Medical Decision Making MDM Narrative Medical decision making narrative: -Course: 33-year-old female presenting with nausea vomiting diarrhea. Symptoms consistent with gastroenteritis. Vital signs stable, abdominal exam normal laboratory studies reassuring. Patient will be discharged with symptomatic treatment. Given return precautions. -DDX includes but is not limited to: Viral syndrome, gastroenteritis, appendicitis, gastritis, gallbladder disease, diverticulitis -Social determinants of health: works as a teacher selection specialist, lives with her 3 children -Independent interpretation of studies: laboratory studies within normal limits -Dx tests considered but not ordered: CT abdomen pelvis-benign abdominal exam -Interventions: Zofran, Toradol, loperamide -Shared decision making / Disposition: discharge -RX Motrin Tylenol Zofran loperamide Vital Signs Vital Signs: Vital Signs Temperature 97.6 F 11/10/23 01:00 Pulse Rate 78 11/10/23 01:00 Respiratory Rate 16 11/10/23 01:00 Blood Pressure 122/58 L 11/10/23 01:00 Pulse Oximetry 100 11/10/23 01:00 Oxygen Delivery Room Air 11/10/23 01:00 Temperature 97.6 F 11/10/23 01:00 Pulse Rate 72 11/10/23 02:07 Respiratory Rate 15 11/10/23 02:07 Blood Pressure 100/58 L 11/10/23 02:07 Pulse Oximetry 100 11/10/23 02:07 Oxygen Delivery Room Air 11/10/23 01:00 Lab Data 11/10/23 01:35 11/10/23 01:35 Labs: Lab Results 11/10/23 11/10/23 Range/Units 01:35 02:22 WBC 7.2 (4.5-10.0) K/mm3 RBC 4.39 (4.2-5.4) M/mm3 Hgb 13.1 (12.0-15.0) g/dL Hct 38.7 (37.0-47.0) % MCV 88.2 (80-100) fl MCH 29.8 (
[2023-11-10 03:12] LABS: Add Urine Microscopic? NO
[2023-11-10] MEDS: LOPERAMIDE HCL 2 MG CAPSULE 4 MG PO (03:19)
[2023-11-10] MEDS: ONDANSETRON INJ 4 MG/2 ML VIAL IV PUSH (03:19)
[2023-11-10] MEDS: KETOROLAC 15 MG/ML VIAL (*BKC) IV PUSH (03:19)
[2023-11-10 03:25] VITALS: BP 98/58; PULSE 73; RESP 18; O2SAT 100
== END 2023-11-10 03:25 | disposition home or self-care (01) ==
PROVIDERS: Physician Assistant; Emergency Provider Emergency Medicine; PCP Nurse Practitioner Family
DX: K52.9 Noninfective gastroenteritis and colitis, unspecified (principal)
CPT/HCPCS: 36415; 80053; 81003; 81025; 83690; 85025; 96374; 96375; 99284; A9270; J1885; J2405

== ENCOUNTER 2023-11-28 17:13 | Emergency (ER) | payer OTHER, SELFPAY ==
[2023-11-28] VITALS (7 sets, daily range): BP systolic 110; BP diastolic 58; PULSE 65–82; RESP 16–17; TEMP 36.8; O2SAT 98–100
--- NOTE | ~2023-11-28 | CT_ITS ---
EXAMINATION: CT brain wo con DATE: 11/28/2023 19:58 INDICATION: syncope, headache . TECHNIQUE: Computed tomography (CT) of the head was performed without intravenous contrast. The mA wa s adjusted according to patient size. Iterative reconstruction technique was employed. The dose-lengt h product was 681.00 mGy-cm. COMPARISON: None. FINDINGS: No acute intracranial hemorrhage or extra-axial fluid collection. No hydrocephalus, mass, or herniation. No acute ischemic infarct. Unremarkable dural venous sinus attenuation. No acute osseous abnormality. The aerated spaces are clear. IMPRESSION: No acute intracranial process. Reviewed, dictated and finalized at location K. MACY TECHNICIAN ASSISTANT
--- NOTE | ~2023-11-28 | XR_ITS ---
EXAMINATION: XR chest 1V portable Exam Date/Time: 11/28/2023 19:34 PORTABLE POWER TOOL REPAIRER HISTORY: syncope Comparison: 05/27/2022. RESULT: Lines, tubes, and devices: None. Lungs and pleura: Clear. Cardiomediastinal silhouette: Stable. Other: No acute osseous or upper abdominal finding. IMPRESSION: No acute cardiopulmonary process. Reviewed, dictated and finalized at location K. ABLE POWER TOOL REPAIRER
--- NOTE | 2023-11-28 19:15 | ECG_ITS ---
Measurements Intervals [place] Rate: 61 P: 18 [place]: 149 QRS: 70 QRSD: 97 T: 65 QT: 419 QTc: 423 Interpretive Statements SINUS RHYTHM WITH SINUS ARRHYTHMIA NORMAL ELECTROCARDIOGRAM COMPARED TO ECG 12/25/2021 07:55:48 SINUS ARRHYTHMIA NOW PRESENT Electronically Signed On 11-29-2023 7:05:59 ROLLER COASTER DESIGNER by Venancio Sosa M.D.
--- NOTE | 2023-11-28 19:21 | ED.DIZZY ---
HPI - Dizziness General Chief Complaint: Syncope Stated Complaint: Syncope Time Seen by Provider: 11/28/23 19:08 Source: patient Mode of arrival: ambulatory Limitations: no limitations History of Present Illness HPI Narrative: This is a 33-year-old female who presents to the ED with chief complaint of syncopal episode while at the grocery store just prior to arrival. Patient was with her who is here supplementing history. Patient states that she remembers feeling fine with a cut to the store. She states when they went to the checkout I will she remembers starting to feel very warm and ?yucky and then is not sure what happened after that. The reports that she started to get weak in the legs and he went behind her to catch her. Reports she was out for just a few seconds and came to, back to normal mentation. Patient reports that she was recently seen for gastroenteritis and had been dealing with vomiting and diarrhea few weeks ago. Since then she has had several episodes of ?dizzy spells at home where she was able to get herself to the couch and did not syncopize. Only other associated symptom is palpitations. Denies associated chest pain or shortness of breath. Denies fevers, chills, nausea, vomiting, diarrhea,, abdominal pain, leg swelling. Related Data Home Medications Medication Instructions Recorded Confirmed norethindrone 1 mg-ethinyl tablet 12/25/21 estradiol 20 mcg (21)-iron 75 mg (7) tablet (Konrad Fe 10/30 (28)) Allergies Allergy/AdvReac Type Severity Reaction Status Date / Time No Known Drug Allergies Allergy Unknown Unknown Verified 09/06/23 11:29 Review of Systems Review of Systems: All systems as dictated in [facility] Family History Family History Other Unknown family medical history Social History Social History Smoking status: Never smoker Substance use: never Spiritual care concerns: No Exam Narrative: GENERAL: Well-appearing, well-nourished, and in no acute distress. HEAD: Normocephalic, atraumatic. EYES: PERRLA and EOMI. ENT: Nares clear, no rhinorrhea or epistaxis. Mucous membranes moist. Oropharynx without tonsillar hypertrophy exudate or other lesions. NECK: Supple. No adenopathy or masses. CHEST: No respiratory distress. Clear to auscultation. No wheezes rales or rhonchi HEART: Regular rate and rhythm. No murmur heard. Normal peripheral pulses. ABDOMEN: Soft, nontender, nondistended, normal active bowel sounds. MSK: Normal range of motion. No edema. SKIN: Warm, dry, no rash. NEURO: Alert and oriented x3. No focal deficits. PSYCH: Normal mood and affect. Course Course Emergency Course: Re-evaluation 2058: Patient remains asymptomatic. Feeling ready to go home. Vital Signs Vital signs: Vital Signs Oxygen Delivery Room Air 11/28/23 17:15 Temperature 98.2 F 11/28/23 21:20 Pulse Rate 67 11/28/23 21:20 Respiratory Rate 17 11/28/23 21:20 Blood Pressure 110/58 L 11/28/23 21:20 Pulse Oximetry 100 11/28/23 21:20 Oxygen Delivery Room Air 11/28/23 19:34 MDM - Dizziness MDM Narrative Medical decision making narrative: A this is a 33-year-old female who presents to the ED for chief complaint of syncopal episode today at the grocery store. Associated prodrome and no chest pain or shortness of breath. Vitals are normal. Exam is benign. EKG shows normal sinus rhythm. Chest x-ray is normal. CBC shows elevated white count of 15.3, likely acute phase reactant. No anemia. CMP unremarkable. Urinalysis shows trace ketones but otherwise unremarkable. Head CT normal On re-evaluation patient is currently asymptomatic. Overall presentation most likely consistent vasovagal syncope. Discussed these findings with the patient. Pt will be discharged in stable condition. Return precautions given and supportiv
[2023-11-28] MEDS: ACETAMINOPHEN 500 MG TABLET 1000 MG PO (19:39)
[2023-11-28 19:41] LABS: Basophils Absolute Auto 0.1 K/mm3 (0.0-0.1); Basophils Percent Auto 0.3 % (0.2-1.2); Eosinophils Absolute Auto 0.1 K/mm3 (0-0.3); Eosinophils Percent Auto 0.7 % (0-4.4); Hematocrit 40.4 % (37.0-47.0); Hemoglobin 13.3 g/dL (12.0-15.0); Immature Granulocyte Absolute 0.06 K/mm3 (0.00-0.031); Immature Granulocyte Percent A 0.4 % (0-0.5); Lymphocytes Absolute Auto 2.45 K/mm3 (0.9-3.2); Mean Corpuscular HGB Conc 32.9 g/dl (32-36); Mean Corpuscular Hemoglobin 29.8 pg (26-34); Mean Corpuscular Volume 90.4 fl (80-100); Mean Platelet Volume 9.4 fl (7.4-10.4); Monocytes Absolute Auto 0.7 K/mm3 (0.1-0.6); Monocytes Percent Auto 4.4 % (2.6-8.5); Neutrophils Percent Auto 78.2 % (45.5-73.1); Platelet Count Result 232 k/mm3 (150-375); Red Blood Count 4.47 M/mm3 (4.2-5.4); Red Cell Distribution Width 12.6 % (11.5-14.5); White Blood Count 15.3 K/mm3 (4.5-10.0)
[2023-11-28 19:46] LABS: Appearance Urine Clear (Clear); Bilirubin Urine Negative (Negative); Blood Urine Negative (Negative); Color Urine Yellow (Yellow); Glucose Urine UA Negative (Negative); Ketones Urine Trace mg/dL (Negative); Leukocyte Esterase Ur Negative LEU/UL (Negative); Nitrate Urine Negative (Negative); Protein Urine Negative (Negative); Specific Grav Ur 1.009 (1.001-1.035); Urobilinogen Urine 0.2 mg/dL (<2.0)
[2023-11-28 19:48] LABS: Add Urine Microscopic? NO
[2023-11-28 20:51] LABS: Alanine Aminotransferase 17 U/L (6-35); Albumin Level 4.5 g/dL (3.5-5.1); Alkaline Phosphatase 58 U/L (38-126); Anion Gap 6 mmol/L (8-16); Aspartate Amino Transferase 31 U/L (14-36); Bilirubin,Total 0.5 mg/dL (0.2-1.3); Blood Urea Nitrogen 14 mg/dL (7-17); Carbon Dioxide 24 mmol/L (22-30); Chloride 105 mmol/L (98-107); Estimated Glomerular Filt Rate > 60; Glucose 95 mg/dL (65-110); Potassium 3.8 mmol/L (3.4-5.0); Sodium 135 mmol/L (137-145)
== END 2023-11-28 21:21 | disposition home or self-care (01) ==
PROVIDERS: Emergency Provider Physician Assistant; PCP Nurse Practitioner Family
DX: R55 Syncope and collapse (principal)
CPT/HCPCS: 36415; 70450; 71045; 80053; 81003; 81025; 85025; 93005; 99284; A9270